=== PATIENT | male | born 1960 | race Caucasian/White ===

== ENCOUNTER 2023-12-23 00:06 | Emergency (ER) | payer BC, SELFPAY ==
[2023-12-23 00:16] VITALS: BP 177/96
--- NOTE | 2023-12-23 00:49 | ED.GENMED ---
History of Present Illness
General
Chief Complaint: Musculo-Skeletal Complaint
Source: patient
Exam Limitations: none
Time Seen by Provider: 12/23/23 00:29
Travel History
Have you had any contact with someone who has COVID-19?: No
Do you have any symptoms of coronavirus? Fever > 100 degrees, chills, cough, shortness of breath, sore throat, loss of taste or smell, muscle aches, or headache?: Yes
Symptoms:: runny nose cough
History of Present Illness
History of Present Illness:
This is a 63 year old male that comes in with c/o pain in the right calf. States that he hurt his right lower leg a few weeks ago. States that there was some bruising and it started to get better. States that he hurt his leg again on Sunday and he
was on the left a lot yesterday and today. States that he thought it was just a muscle pull. States that today when he got home the bruising was down into his heel and they felt the leg was swollen and warm. States that he has had a cold with a
headache. Denies any fever, chills, chest pain, SOB, abd pain, nausea, vomiting, diarrhea, dizziness, urinary burning.
Past History
Past History
ED Past Medical History: Cancer (Skin Cancer), HTN and Other (Elevated liver enzymes)
ED Past Surgical History: Appendectomy
Social History
Tobacco: Non-smoker
Alcohol: None
Personal: Single
Living: with family
Review of Systems
Review of Systems
All Other Systems: ROS reviewed and negative except as documented in HPI and ROS
Constitutional: Reports no symptoms; Denies fever or chills
EENT: Reports no symptoms
Respiratory: Reports no symptoms; Denies cough or trouble breathing
Cardiac: Reports no symptoms; Denies chest pain
ABD/GI: Reports no symptoms; Denies abdominal pain, nausea, vomiting or diarrhea
: Reports no symptoms; Denies dysuria or urgency
Musculoskeletal: Reports other (Swelling of the right lower leg with pain in the calf)
Skin: Reports no symptoms
Neurological: Reports headache; Denies dizzy
Psychiatric: Reports no symptoms
Phy Exam
General Physical Exam
General Presentation: well appearing and no apparent distress
General age: appears stated age
General Skin: warm and dry
General Habitus: normal
General Mental: alert
General Hydration: appears well hydrated
ENT Exam
ENT Exam: TM's normal, pharynx normal and neck supple
Eye Exam
Eye Exam: EOMI
Cardiovascular Exam
Cardiovascular Exam: regular rate/rhythm and normal peripheral pulses
Pulmonary Exam
Pulmonary Exam: no respiratory distress, chest non tender, no rhonchi, no wheezing, no cough and other (Fine rales at right base)
Gastrointestinal Exam
Gastrointestinal Exam: normal bowel sounds, non tender, soft, no organomegaly, no pulsatile mass and non distended
Musculoskeletal Exam
Musculoskeletal Exam: other (Slight swelling of the right lower leg with Contusion of the lower calf down into the heel. Negative Robles test)
Skin Exam
Skin Exam: normal color, warm/dry, no rash, no petechia and other (Old contusion in the right calf down into the right heel)
Psychiatric Exam
Psychiatric Exam: normal mood/affect
Course
Orders/Labs/Results
Orders:
Orders
12/23/23 00:48
US Legs, Right [US Periph Venous LOWER Ext RT] Urgent
Comment:
Reason For Exam: Swelling and pain
Vital Signs
Initial and Last Documented VS:
Initial Vital Signs
Temp Pulse Resp BP Pulse Ox
97.8 F 69 20 177/96 98
12/23/23 00:16 12/23/23 00:16 12/23/23 00:16 12/23/23 00:16 12/23/23 00:16
Last Documented Vital Signs
Temp Pulse Resp BP Pulse Ox
97.8 F 64 14 121/89 98
12/23/23 00:16 12/23/23 01:21 12/23/23 01:21 12/23/23 01:21 12/23/23 01:21
MDM/Problems Addressed
Differential Diagnosis Includes:
DVT, partial tendon rupture
MDM/Problems Addressed:
This is a 63 year old male that comes in with c/o right calf pain and swelling. States that he hurt the leg a few weeks ago. States it was getting better and then he injured the leg again this week on Sunday. States that the was on the leg a lot
yesterday and today. Today he has increased pain and bruising down into the heel. States that he felt the leg was also warm.
Will get US
Back into see patient. Explained that his US is negative. There is no sign of cellulitis or increased warmth at this time. Explained that there could be muscle damage that will need further evaluation with the computer customer support specialist. Patient to stay
off his feet for a few days. Return with any redness, increased swelling or any other concerns.
Chronic conditions affecting care:
NA
Acute Exacerbation and/or Progression of Chronic Illness:
NA
*Pulse Oximetry
Patient hypoxic: no
*EKG
Interpreted by ED Provider?: NA
Rate: EKG- N/A
*Wrapper Selector Interpretation
Rate: Wrapper Selector- N/A
*Critical Care Note
Total Time (30-74mins, 75-104mins- exclusive of procedures): Not Applicable
ED Attending Note
-
Portions of this chart may have been created with voice recognition software.� Occasional wrong word or��sound alike� substitutions may have occurred due to the inherent limitations of voice recognition software.
Discharge Plan
Departure
Patient Disposition: Home (Routine Discharge)
Date of Disposition: 12/23/23
Time of Disposition: 02:07
Patient with high blood pressure during this ER visit?: Yes
Condition: Good
Covid-19: Not Applicable
Discharge Problem:
Pain of right calf, Contusion of lower leg, right
Instructions: Contusion (DC), BLOOD PRESSURE
Prescriptions:
No Action
lisinopril 30 mg Tablet
30 mg PO DAILY
omeprazole 20 mg Tablet,Disintegrat, Delay Rel
20 mg PO DAILY
amlodipine
5 mg PO DAILY
nadolol
80 mg PO BID
Referrals:
Aileen Felix MD [Family Provider] -
Lan Smith MD [Active] - Follow up in 2-3 days
Activity Restrictions/Additional Instructions:
As discussed, you have bruising of the right lower leg into the heel. Your Ultrasound is negative for DVT. There is no sign of Cellulitis or infection at this time. You will need to follow up with the computer customer support specialist for further evaluation of
the muscles. IF YOU HAVE ANY REDNESS, INCREASED SWELLING OR YOU HAVE ANY OTHER CONCERNS PLEASE RETURN TO THE EMERGENCY ROOM.
Interventions
Interventions:
*Risk Screen - Suicide Last Done: 12/23/23 00:16
*General Assessment Last Done: 12/23/23 00:16
*Neglect/Abuse Screening Last Done: 12/23/23 00:16
ED- Fall Risk Assessment Last Done: 12/23/23 00:16
*ED COVID-19 Vaccine History Last Done: 12/23/23 00:16
ED-Musculoskeletal Assessment Last Done: 12/23/23 01:21
ED- Pulmonary Assessment Last Done: 12/23/23 01:21
ED-Skin Assessment Last Done: 12/23/23 01:21
Discharge Date and Time
Print Language: GERMAN
[2023-12-23 01:21] VITALS: BP 121/89
[2023-12-23 01:22] VITALS: BMI 29.8
== END 2023-12-23 02:17 | disposition home or self-care (01) ==
LOC: EMR 00:06
PROVIDERS: EMERGENCY PHYSICIAN Student in an Organized Health Care Education/Training Program; FAMILY PHYSICIAN Internal Medicine
DX: S80.11XA Contusion of right lower leg, initial encounter (principal); X58.XXXA Exposure to other specified factors, initial encounter; M79.661 Pain in right lower leg; I10 Essential (primary) hypertension
CPT/HCPCS: 99284; 93971

== ENCOUNTER → 2025-05-19 13:38 | Outpatient (REF) | payer BC, SELFPAY | LOC: RAD 13:38 | PROVIDERS: ATTENDING PHYSICIAN Nurse Practitioner Adult Health | DX: M54.50 Low back pain, unspecified (principal) | CPT/HCPCS: 72110 ==